=== PATIENT | female | born 1940 | race Caucasian/White ===

== ENCOUNTER 2016-07-06 14:24 | Emergency (ER) | payer MEDICARE ==
[~2016-07-06] VITALS: Ht 160 cm; Wt 80.7 kg
[2016-07-06 15:46] VITALS: BP 145/65
[2016-07-06] MEDS ORDERED: DIAZEPAM 10 MG/2 ML DISP.SYRIN. IM ONE (16:00)
[2016-07-06] MEDS ORDERED: DIPHTH,PERTUSS(ACELL),TET TOX 0.5 ML DISP.SYRIN. VAX IM ONE (16:00)
[2016-07-06] MEDS ORDERED: LIDOCAINE 1% / SOD BICARB 8.4% 20 ML VIAL. IJ ONE (16:00)
--- NOTE | 2016-07-06 16:42 | PHYS DOC ---
Past Medical History Past Medical History: Diabetes-Type II, High Cholesterol, Hypertension Additional Past Medical Histor: back pain, Past Surgical History: Hysterectomy Alcohol Use: Rarely Drug Use: None Adult General Chief Complaint Chief Complaint: MECHANICAL FALL HPI HPI Patient is a 75 year old female with history of hypertension high cholesterol who presents with left facial laceration after falling. Patient states she tripped and fell face forward. Patient denies any loss of consciousness, denies taking any blood thinners. She is complaining of facial laceration, right knee pain, and bruising to the right hand. Review of Systems Review of Systems Constitutional: Denies fever or chills [] Eyes: Denies change in visual acuity, redness, or eye pain [] HENT: Denies nasal congestion or sore throat [] Respiratory: Denies cough or shortness of breath [] Cardiovascular: No additional information not addressed in HPI [] GI: Denies abdominal pain, nausea, vomiting, bloody stools or diarrhea [] : Denies dysuria or hematuria [] Musculoskeletal: Right knee pain, right hand bruising Integument: Right below the eyebrow laceration Neurologic: Denies headache, focal weakness or sensory changes [] Endocrine: Denies polyuria or polydipsia [] Current Medications Current Medications Current Medications Medications (Trade) Dose Ordered Sig/Darius Start Time Stop Time Status Last Admin Dose Admin Diazepam (Valium) 10 mg 1X ONCE 07/06/16 16:00 07/06/16 16:06 DC 07/06/16 16:10 10 MG Diphtheria/ Tetanus/Acell Pertussis (Boostrix) 0.5 ml ONCE ONCE 07/06/16 16:00 07/06/16 16:06 DC 07/06/16 16:12 0.5 ML Lidocaine/Sodium Bicarbonate (Buffered Lidocaine 1%) 20 ml 1X ONCE 07/06/16 16:00 07/06/16 16:06 DC 07/06/16 16:00 20 ML Allergies Allergies Allergies Coded Allergies Type Severity Reaction Last Updated Verified No Known Drug Allergies 07/06/16 No Physical Exam Physical Exam Constitutional: Well developed, well nourished, no acute distress, non-toxic appearance. [] HENT: Normocephalic, atraumatic, bilateral external ears normal, oropharynx moist, no oral exudates, nose normal. [] Eyes: PERRLA, EOMI, conjunctiva normal, no discharge. [] Neck: Normal range of motion, no tenderness, supple, no stridor. [] Cardiovascular:Heart rate regular rhythm, no murmur [] Lungs & Thorax: Bilateral breath sounds clear to auscultation [] Abdomen: Bowel sounds normal, soft, no tenderness, no masses, no pulsatile masses. [] Skin: right lower eyelid with a laceration approximately 2 cm long. There is mild amount of periorbital ecchymosis around the right eye. Back: No tenderness, no CVA tenderness. [] Extremities: Right hand with small amount of bruising on the palm of the hand, patient denies any pain to the hand, full range of motion to the hand. +2 right radial pulse. Cap refill less than 2 seconds the right hand. Adequate ulnar medial and radial sensation to the right hand. Right knee with trace amount of bruising, tenderness on palpation of right anterior knee. Full range of motion to the right knee, negative Cali sign negative Jeffrey's sign negative anterior-posterior drawer sign to the right knee. +2 right pedal pulse. Cap refill less than 2 seconds the right lower extremity. Neurologic: Alert and oriented X 3, normal motor function, normal sensory function, no focal deficits noted. Cranial nerves II through XII intact Psychologic: Affect normal, judgement normal, mood normal. [] Current Patient Data Vital Signs Vital Signs Date Time Temp Pulse Resp B/P Pulse Ox O2 Delivery O2 Flow Rate FiO2 07/06/16 15:46 62 18 145/65 96 Room Air EKG EKG [] Radiology/Procedures Radiology/Procedures []PROCEDURE: HEAD AND MAXILLOFACIAL WO EXAM: 1. CT head without contrast. 2. CT facial bones without contrast HISTORY: Head/facial trauma. Right eyelid laceration. TECHNIQUE: Computed tomography of the head and facial bones was performed without intravenous contrast. COMPARISON: None. FINDINGS: There is no intracranial hemorrhage. Mild hypoattenuation within the periventricular white matter indicates mild chronic small vessel ischemic change. The ventricles are normal in size and position. The temporal bones are unremarkable. The calvarium reveals no suspicious lesions. No facial fractures are identified. There are no air-fluid levels in the sinuses. There is a small amount of right orbital emphysema inferolaterally and anteriorly. There is no orbital ecchymosis or hematoma. There is soft tissue swelling within the preseptal soft tissues inferiorly. Both globes are unremarkable. IMPRESSION: 1. No acute intracranial findings. 2. Small amount of right orbital emphysema. No orbital fracture or ecchymosis. 3. Right infraorbital laceration. 4. Mild chronic small vessel ischemic white matter change. *One or more of the following individualized dose reduction techniques were utilized for this examination: 1. Automated exposure control. 2. Adjustment of the mA and/or kV according to patient size. 3. Use of iterative reconstruction technique. DICTATED and SIGNED BY: CEDRIC GRAY MD DATE: 07/06/16 [id number] CC: ELLIS MATUTE APRN; VIPUL THOMAS DO ~ Indication: Right lower eyelid laceration Procedure: The patient was placed in the appropriate position and anesthesia around the laceration was 1% buffered lidocaine, the laceration was cleaned with normal saline 100 ML and Betadine 30 mL, the laceration was closed with 4 interrupted sutures using 6. 0 Ethilon. The wound was left open to air. Total repaired wound length: Approximately 2 cm Other Items: none The patient tolerated the procedure well Complications:none repair done by hi Course & Med Decision Making Course & Med Decision Making Pertinent Labs and Imaging studies reviewed. (See chart for details) Patient is in the ED with complaints of right below the eyelid laceration, right knee pain, and right hand bruising after falling, we did give her tetanus in the ED. Right knee x-ray and right hand x-rays interpreted by radiologist are negative for any acute findings. CT of the head and maxillary facial was negative for any acute findings, CT is noted for small amount of right orbital emphysema occurring over patient's laceration on the right lower eyelid. The laceration was cleaned thoroughly and closed as noted in procedures. Patient is to follow-up with the PCP in 5 days for suture removal. Provided return precautions and discharged in stable condition. Dragon Disclaimer Dragon Disclaimer This electronic medical record was generated, in whole or in part, using a voice recognition dictation system. Departure Departure Impression: Primary Impression: Facial contusion Additional Impressions: Fall from standing Knee contusion Contusion of knee, right Contusion of hand, right Disposition: 01 HOME, SELF-CARE Condition: STABLE Referrals: VIPUL THOMAS DO (PCP) Follow-up with your doctor in 5 days for suture removal Patient Instructions: Contusion Additional Instructions: You were seen for facial contusion, knee and right had contusions after falling. Apply ice to the affected area. Keep the laceration site on your face clean and dry. Apply Neosporin to it twice a day. Follow-up with your doctor in 5 days for suture removal. Come back to the emergency room for any concerning symptoms especially confusion, loss of consciousness, uncontrolled headaches, uncontrolled nausea vomiting. Problem Qualifiers Primary Impression: Facial contusion Encounter type: initial encounter Qualified Code: S00.83XA - Contusion of other part of head, initial encounter Additional Impressions: Fall from standing Encounter type: initial encounter Qualified Code: W19.XXXA - Unspecified fall, initial encounter Knee contusion Encounter type: initial encounter Laterality: right Qualified Code: S80.01XA - Contusion of right knee, initial encounter ELLIS MATUTE APRN Jul 06, 2016 16:42
--- NOTE | 2016-07-06 17:04 | RAD ---
Right knee with patella, 4 views, 07/06/2016: History: Fall No fracture or dislocation is identified. There is mild spurring medially at the knee joint and at the patellofemoral articulation. No joint effusion is evident. IMPRESSION: 1. Mild degenerative change. 2. No acute bony abnormality is detected.
--- NOTE | 2016-07-06 17:06 | RAD ---
Right hand, 3 views, 07/06/2016: History: Fall, pain There is patchy bony demineralization. No fracture or dislocation is identified. There are mild degenerative changes at scattered interphalangeal joints. IMPRESSION: 1. Demineralization. 2. No acute bony abnormality is detected.
== END 2016-07-06 17:20 | disposition home or self-care (01) ==
LOC: ER 14:24
DX: S01.111A Laceration without foreign body of right eyelid and periocular area, initial encounter (principal); S80.01XA Contusion of right knee, initial encounter; S60.221A Contusion of right hand, initial encounter; I10 Essential (primary) hypertension; E11.9 Type 2 diabetes mellitus without complications; E78.00 Pure hypercholesterolemia, unspecified; W01.0XXA Fall on same level from slipping, tripping and stumbling without subsequent striking against object, initial encounter; Y93.89 Activity, other specified; Y92.89 Other specified places as the place of occurrence of the external cause; Y99.8 Other external cause status
CPT/HCPCS: 12011; 70450; 70486; 73130; 73564; 90471; 90715; 96372; 99284; J3360

== ENCOUNTER 2019-11-30 20:14 | Emergency (ER) | payer MEDICARE, OTHER ==
[~2019-11-30] VITALS: Ht 160 cm; Wt 84.1 kg
--- NOTE | 2019-11-30 20:55 | PHYS DOC ---
Past Medical History Past Medical History: Diabetes-Type II, High Cholesterol, Hypertension Additional Past Medical Histor: back pain, Past Surgical History: Hysterectomy Smoking Status: Never Smoker Alcohol Use: Rarely Drug Use: None General Adult EDM: Chief Complaint: MECHANICAL FALL HPI: HPI: Patient is a 79 year old FEMALE who presents with was walking out to her mailbox when she tripped over her feet and fell onto the gravel. Patient has bruising around the right eye with a small superficial abrasion to the upper eyelid with a small amount of bleeding. Patient denies LOC. Patient also complains of tenderness, bruising and 2+ swelling and pain to the right cheekbone. Patient has some bruising to the bridge of her nose but no abrasion or cut or deformity. There is no tenderness to the nose. Patient states she can breathe out of her nose. Patient can speak and open her mouth fully but is painful on the right side. No broken or missing teeth. Patient denies any visual changes. Patient denies any pain with eye movements. Speaks in full clear sentences. Patient also has bilateral knee abrasions but there is no tenderness but she states they are painful. No deformity to her knees and no laxity in the joints. Patient has full range of motion of them. Patient also complains of right shoulder pain but no tenderness. Patient has limited range of motion of the right shoulder due to pain but there does not look to be any deformity, bruising and no abrasion. Patient rates her pain an 8 out of 10. She states she is not on any current blood thinners and she is not on aspirins. She states that she did vomit once but denies LOC. She denies any nausea at this time. She denies any neck or back pain. She denies any hip or pelvis pain. Patient has no pain in the pelvis with the pelvic rock. There is no bruising or deformity. No shortening of legs. Patient has no tenderness or bruising to her lumbar spine, thoracic spine, cervical spine. She is full range of motion in her neck. No abrasion or trauma to her neck. No trauma to the res t of her skull other than her face. Full range of motion of her arms with strong mill dresser in bilateral arms and strong strengths in bilateral legs. Patient is able to roll over in the bed so I can check her back. Full range of motion at the hips bilaterally. Review of Systems: Review of Systems: Constitutional: Denies fever or chills. [] Eyes: Denies change in visual acuity. [] HENT: Denies nasal congestion or sore throat. [] Respiratory: Denies cough or shortness of breath. [] Cardiovascular: Denies chest pain or edema. [] GI: Denies abdominal pain, nausea, vomiting, bloody stools or diarrhea. [] : Denies dysuria. [] Musculoskeletal: Denies spine back pain. Right shoulder and bilateral knee joint pain. [] Integument: Denies rash. No knee abrasions. Right eyebrow abrasion. B ruising swelling around the right eye orbit. Right cheek bone 2+ swelling with bruising. Nasal bridge bruising but no swelling or bleeding from nares. No fluid coming from eardrums bilaterally. [] Neurologic: Denies headache, focal weakness or sensory changes. [] Endocrine: Denies polyuria or polydipsia. [] Lymphatic: Denies swollen glands. [] Psychiatric: Denies depression or anxiety. [] Heart Score: Risk Factors: Risk Factors: DM, Current or recent (<one month) smoker, HTN, HLP, family history of CAD, obesity. Risk Scores: Score 0 - 3: 2.5% MACE over next 6 weeks - Discharge Home Score 4 - 6: 20.3% MACE over next 6 weeks - Admit for Clinical Observation Score 7 - 10: 72.7% MACE over next 6 weeks - Early Invasive Strategies Allergies: Allergies: Allergies Coded Allergies Type Severity Reaction Last Updated Verified No Known Drug Allergies 07/06/16 No Physical Exam: PE: Constitutional: Well developed, well nourished, no acute distress, non-toxic appearance. [] HENT: Normocephalic, atraumatic, bilateral external ears normal, oropharynx moist, no oral exudates, nose normal. [] Eyes: PERRLA, EOMI, conjunctiva normal, no discharge. [] Neck: Normal range of motion, no tenderness, supple, no stridor. [] Cardiovascular:Heart rate regular rhythm, no murmur [] Lungs & Thorax: Bilateral breath sounds clear to auscultation [] Abdomen: Bowel sounds normal, soft, no tenderness, no masses, no pulsatile masses. [] Skin: Warm, dry, no erythema, no rash. Abrasion to bilateral knees. Abrasion and swelling and bruising right around the right orbit of the eye. Nasal bridge bruising but no swelling or deformity. [] Back: No tenderness, no CVA tenderness. [] Extremities: No tenderness, no cyanosis, no clubbing, ROM intact, no edema. [] Neurologic: Alert and oriented X 3, normal motor function, normal sensory function, no focal deficits noted. [] Psychologic: Affect normal, judgement normal, mood normal. [] EKG: EKG: [] Radiology/Procedures: Radiology/Procedures: [] Impression: [place] [id number] IMAGING REPORT Signed PATIENT: YE CEDEÑO ACCOUNT: [id number] : 1940 LOCATION: ER AGE: 79 SEX: F EXAM STATUS: PRE ER ORD. PHYSICIAN: SHAVON LAN APRN REASON: FALL, PAIN PROCEDURE: SHOULDER 2+V RIGHT Exam: Right shoulder 3 views INDICATION: Fall, pain TECHNIQUE: Frontal view of the right shoulder with internal and external rotation. Transscapular Y views. Comparisons: None FINDINGS: Bone mineralization is normal. No acute or healed fractures. Soft tissues are unremarkable. Joint spaces are well-maintained. IMPRESSION: No acute osseous abnormality. Electronically signed by: Luigi Elizabeht MD (11/30/2019 9:28 PM) [id number] DICTATED and SIGNED BY: LUIGI ELIZABETH MD DATE: 11/30/[address] [address] IMAGING REPORT Signed PATIENT: YE CEDEÑO ACCOUNT: [id number] : 1940 LOCATION: ER AGE: 79 SEX: F EXAM STATUS: PRE ER ORD. PHYSICIAN: SHAVON LAN APRN REASON: FALL, PAIN PROCEDURE: KNEE BILAT 4V Exam: Bilateral knees 4 views INDICATION: Fall, pain TECHNIQUE: Frontal, lateral, oblique and sunrise views of the right and left knee. Comparisons: None FINDINGS: Left knee: Mild osteopenia. No acute or healed fractures. There is mild soft tissue swelling overlying the patella. Joint spaces are well-maintained. Right knee: Bone mineralization is normal. No acute or healed fractures. Soft tissues are unremarkable. There is mild tricompartmental osteoarthritic change greatest in the medial compartment. IMPRESSION: 1. Mild soft tissue swelling overlying the left patella without underlying osseous abnormality. 2. No acute osseous abnormality of the right knee. Electronically signed by: Luigi Elizabeth MD (11/30/2019 9:27 PM) [id number] DICTATED and SIGNED BY: LUIGI ELIZABETH MD DATE: 11/30/192126 [facility] [address] [place] [address] IMAGING REPORT Signed PATIENT: YE CEDEÑO ACCOUNT: [id number] : 1940 LOCATION: ER AGE: 79 SEX: F EXAM STATUS: PRE ER ORD. PHYSICIAN: SHAVON LAN APRN REASON: FALL, PAIN PROCEDURE: CT HEAD AND CERVICAL SPINE WO Exam: CT head, maxillofacial and cervical spine INDICATION: Fall, pain TECHNIQUE: Sequential axial images through the head, face and cervical spine were obtained without the administration of IV contrast. Comparisons: 07/06/2016 FINDINGS: Head: No focal parenchymal lesion or hemorrhage is identified. There is no midline shift or sulcal effacement. No acute vascular territory infarction is identified. Carlin-white distinction is preserved. The ventricular system is within normal limits without compression hydrocephalus. The basal cisterns are well maintained. Face: Extra cranial soft tissue contusion overlying the right cheek. Comminuted fractures involving the anterior and posterior gallegos of the right maxillary sinus. There is hemorrhagic products in the right maxillary sinus. Air is noted in the intraconal and extraconal fat of the right globe as well as the preseptal fat. Extraocular muscles and globes are normal. Cervical spine: Vertebral body heights and alignment are well-maintained. Fracture through the cervical spine is not identified. Mild spondylotic change in cervical spine with degenerative disc disease greatest at C3-C4 and C5-C6. Mild bilateral facet arthropathy is also noted. Visualized paraspinal soft tissues are unremarkable. IMPRESSION: 1. Comminuted fractures involving the anterior, lateral and posterior gallegos of the right maxillary sinus.. Hemorrhagic products are noted within the maxillary sinus. 2. Soft tissue gas is seen in the preseptal and post septal fat of the right orbit. Otherwise, the intraorbital contents are normal. No evidence for entrapment. 3. No acute intracranial abnormality. 4. Negative CT C-spine for acute traumatic injury. Exposure: One or more of the following in the visualized dose reduction techniques were utilized for this examination: 1. Automated exposure control 2. Adjustment of the MA and/or KV according to patient size Use of iterative of reconstructive technique Electronically signed by: Luigi Elizabeth MD (11/30/2019 9:52 PM) [id number] DICTATED and SIGNED BY: LUIGI ELIZABETH MD DATE: 11/30/192151 Course & Med Decision Making: Course & Med Decision Making Pertinent Labs and Imaging studies reviewed. (See chart for details) To be given a tetanus shot and pain medication. See HPI. No pain or bruising over chest or ribs and there is no crepitus. Speaks in full clear sentences. Alert and oriented. PERRLA. Patient states that she already has half of her vision loss in the right eye but nothing new. She denies chest pain or shortness of breath, nausea, diarrhea, fever, dysuria symptoms, back pain, neck pain, LOC, dizziness. Patient is placed in a c-collar. Patient is taken out of the C collar and cleared. Her abrasions are cleaned with chlorhexidine and antibiotic ointment is placed on abrasion. I have clouded images over to and waiting for return call from concerning Patient CT findings. IMPRESSION: 1. Comminuted fractures involving the anterior, lateral and posterior gallegos of the right maxillary sinus.. Hemorrhagic products are noted within the maxillary sinus. 2. Soft tissue gas is seen in the preseptal and post septal fat of the right orbit. Otherwise, the intraorbital contents are normal. No evidence for entrapment. 3. No acute intracranial abnormality. 4. Negative CT C-spine for acute traumatic injury. I spoke to Dr Ren with Trauma who states I need to speak to the "Facial Team". Dr Aneudy Oliver states that the patient can follow up with him at the plastic clinic on Tuesday with the phone number of [phone]. He states she can keep applying ice to the area throughout the weekend. Patient will be staying with either her daughter in law or her sister over the weekend to watch the patient. [] Kirill Disclaimer: Kirill Disclaimer: This electronic medical record was generated, in whole or in part, using a voice recognition dictation system. Departure Departure Impression: Primary Impression: Facial contusion Qualified Codes: S00.83XA - Contusion of other part of head, initial encounter Additional Impressions: Fall from standing Qualified Codes: W19.XXXA - Unspecified fall, initial encounter Abrasion Contusion of left knee Qualified Codes: S80.02XA - Contusion of left knee, initial encounter Fracture of maxillary sinus Qualified Codes: S02.401A - Maxillary fracture, unspecified side, initial encounter for closed fracture Disposition: HOME, SELF-CARE Condition: STABLE Referrals: VIPUL THOMAS DO (PCP) Patient Instructions: Abrasion, [id number], Contusion, Facial Fracture Additional Instructions: Follow-up with Dr. Aneudy Oliver at Plastics clinic Tuesday. Call [phone] for appointment. Keep ice on your face to help with swelling and pain. Take medication as prescribed and with food. Rest over the weekend as much as possible. If the patient begins to have constant vomiting or acting disoriented return to the ED. Scripts Ondansetron (ONDANSETRON ODT) 4 Mg Tab.rapdis 1 TAB PO PRN Q6-8HRS, #16 TAB Prov: SHAVON LAN APRN 11/30/19 Amoxicillin (AMOXICILLIN) 500 Mg Capsule 1 CAP PO BID, #20 CAP Prov: SHAVON LAN APRN 11/30/19 Oxycodone/Apap 5-325 (PERCOCET 5-325 MG TABLET ) 1 Each Tablet 1 TAB PO PRN Q6HRS PRN for PAIN, #10 TAB 0 Refills Prov: SHAVON LAN APRN 11/30/19 Justicifation of Admission Dx: Justifications for Admission: Justification of Admission Dx: N/A SHAVON LAN APRN Nov 30, 2019 20:55
[2019-11-30] MEDS ORDERED: HYDROcodone/APAP 5/325MG 1 TAB TABLET PO ONE (21:00)
[2019-11-30] MEDS ORDERED: ONDANSETRON ODT 4 MG TAB.RAPDIS. PO ONE (21:30)
--- NOTE | 2019-11-30 21:30 | RAD ---
Exam: Bilateral knees 4 views INDICATION: Fall, pain TECHNIQUE: Frontal, lateral, oblique and sunrise views of the right and left knee. Comparisons: None FINDINGS: Left knee: Mild osteopenia. No acute or healed fractures. There is mild soft tissue swelling overlying the patella. Joint spaces are well-maintained. Right knee: Bone mineralization is normal. No acute or healed fractures. Soft tissues are unremarkable. There is mild tricompartmental osteoarthritic change greatest in the medial compartment. IMPRESSION: 1. Mild soft tissue swelling overlying the left patella without underlying osseous abnormality. 2. No acute osseous abnormality of the right knee. Electronically signed by: Luigi Becker MD (11/30/2019 9:27 PM) [id number]
--- NOTE | 2019-11-30 21:31 | RAD ---
Exam: Right shoulder 3 views INDICATION: Fall, pain TECHNIQUE: Frontal view of the right shoulder with internal and external rotation. Transscapular Y views. Comparisons: None FINDINGS: Bone mineralization is normal. No acute or healed fractures. Soft tissues are unremarkable. Joint spaces are well-maintained. IMPRESSION: No acute osseous abnormality. Electronically signed by: Luigi Becker MD (11/30/2019 9:28 PM) [id number]
[2019-11-30 21:33] LABS: BILIRUBIN,URINE NEGATIVE (NEG); CLARITY,URINE TURBID; COLOR,URINE YELLOW; NITRITE,URINE NEGATIVE (NEG); PROTEIN,URINE NEGATIVE (NEG-TRACE); UROBILINOGEN,URINE 0.2 mg/dL (0.2 mg/dL)
[2019-11-30 21:42] LABS: BACTERIA,URINE FEW /HPF (0-FEW); SQUAMOUS EPITHELIAL CELL,UR OCC /LPF
[2019-11-30 21:43] LABS: AMORPHOUS SEDIMENT,UR PRESENT /HPF
--- NOTE | 2019-11-30 21:55 | RAD ---
Exam: CT head, maxillofacial and cervical spine INDICATION: Fall, pain TECHNIQUE: Sequential axial images through the head, face and cervical spine were obtained without the administration of IV contrast. Comparisons: 07/06/2016 FINDINGS: Head: No focal parenchymal lesion or hemorrhage is identified. There is no midline shift or sulcal effacement. No acute vascular territory infarction is identified. Carlin-white distinction is preserved. The ventricular system is within normal limits without compression hydrocephalus. The basal cisterns are well maintained. Face: Extra cranial soft tissue contusion overlying the right cheek. Comminuted fractures involving the anterior and posterior gallegos of the right maxillary sinus. There is hemorrhagic products in the right maxillary sinus. Air is noted in the intraconal and extraconal fat of the right globe as well as the preseptal fat. Extraocular muscles and globes are normal. Cervical spine: Vertebral body heights and alignment are well-maintained. Fracture through the cervical spine is not identified. Mild spondylotic change in cervical spine with degenerative disc disease greatest at C3-C4 and C5-C6. Mild bilateral facet arthropathy is also noted. Visualized paraspinal soft tissues are unremarkable. IMPRESSION: 1. Comminuted fractures involving the anterior, lateral and posterior gallegos of the right maxillary sinus.. Hemorrhagic products are noted within the maxillary sinus. 2. Soft tissue gas is seen in the preseptal and post septal fat of the right orbit. Otherwise, the intraorbital contents are normal. No evidence for entrapment. 3. No acute intracranial abnormality. 4. Negative CT C-spine for acute traumatic injury. Exposure: One or more of the following in the visualized dose reduction techniques were utilized for this examination: 1. Automated exposure control 2. Adjustment of the MA and/or KV according to patient size Use of iterative of reconstructive technique Electronically signed by: Luigi Becker MD (11/30/2019 9:52 PM) [id number]
[2019-11-30] MEDS ORDERED: NEOMY/BACITR/POLYMYXIN OINT PACKET. TP ONE (22:00)
[2019-11-30] MEDS ORDERED: OXYC1TAB15 PO (22:53)
[2019-11-30] MEDS ORDERED: AMOX500C PO (22:53)
[2019-11-30] MEDS ORDERED: ONDA4TAB12 PO (22:53)
[2019-11-30 22:55] VITALS: BP 162/70
[2019-11-30] MEDS ORDERED: MORPHINE SULFATE 4 MG/ML VIAL. IM ONE (23:00)
== END 2019-11-30 23:08 | disposition home or self-care (01) ==
LOC: ER 20:14
DX: S02.40CA Maxillary fracture, right side, initial encounter for closed fracture (principal); S80.02XA Contusion of left knee, initial encounter; S00.83XA Contusion of other part of head, initial encounter; S00.33XA Contusion of nose, initial encounter; S80.212A Abrasion, left knee, initial encounter; S80.211A Abrasion, right knee, initial encounter; S09.90XA Unspecified injury of head, initial encounter; M50.31 Other cervical disc degeneration, high cervical region; M25.511 Pain in right shoulder; E11.9 Type 2 diabetes mellitus without complications; I10 Essential (primary) hypertension; E78.00 Pure hypercholesterolemia, unspecified; Z90.710 Acquired absence of both cervix and uterus; W18.09XA Striking against other object with subsequent fall, initial encounter; Y93.01 Activity, walking, marching and hiking; Y92.89 Other specified places as the place of occurrence of the external cause; Y99.8 Other external cause status
CPT/HCPCS: 70450; 70486; 72125; 73030; 73564; 81001; 87086; 96372; 99285; J2270